=== PATIENT | male | born 1985 | race Hispanic/Latino ===

== ENCOUNTER 2022-08-04 10:56 | Emergency (ER) | payer OTHER ==
[~2022-08-04] VITALS: Ht 172.7 cm; Wt 148.8 kg
[2022-08-04 11:05] VITALS: BP 121/74
[2022-08-04] MEDS ORDERED: IBUPROFEN 800 MG TAB PO ONE (12:00)
[2022-08-04] MEDS ORDERED: OSELTAMIVIR PHOSPHATE 75 MG CAP PO SCH (12:00)
[2022-08-04] MEDS ORDERED: ONDANSETRON ODT 4MG TAB SL ONE (12:00)
[2022-08-04] MEDS ORDERED: OSEL75 PO (12:22)
[2022-08-04] MEDS ORDERED: IBUP-2077 PO (12:22)
== END 2022-08-04 12:45 | disposition home or self-care (01) ==
LOC: EDH 10:56
DX: J10.1 Influenza due to other identified influenza virus with other respiratory manifestations (principal); Z20.822 Contact with and (suspected) exposure to COVID-19; Z79.1 Long term (current) use of non-steroidal anti-inflammatories (NSAID)
CPT/HCPCS: 99284; 87635; 87804 ×2; 87880; 93005; C9803

== ENCOUNTER 2022-08-08 14:15 | Emergency (ER) | payer OTHER ==
[~2022-08-08] VITALS: Ht 172.7 cm; Wt 148.8 kg
[~2022-08-08 14:15] MED LIST: IBUP-2077 PO; OSEL75 PO
[2022-08-08 14:16] VITALS: BP 135/81
[2022-08-08 14:56] LABS: APPEARANCE,URINE CLEAR (CLEAR); BILIRUBIN,URINE NEGATIVE (NEGATIVE); COLOR,URINE LIGHT-YELLOW (YELLOW); GLUCOSE, URINE (UA) NEGATIVE (NEGATIVE); KETONES,URINE NEGATIVE (NEGATIVE); LEUKOCYTE ESTERASE ,URINE NEGATIVE Leu/uL (NEGATIVE); NITRATE,URINE NEGATIVE (NEGATIVE); OCCULT BLOOD,URINE NEGATIVE (NEGATIVE); PH,URINE 5.5 (5.0-8.0); PROTEIN,URINE NEGATIVE (NEGATIVE); UROBILINOGEN,URINE 0.2 mg/dL (0.2-1.0)
[2022-08-08 15:04] LABS: BACTERIA,URINE RARE /HPF (None Seen); MUCUS,URINE FEW LPF (None Seen); RBC,URINE 0-1 /HPF (0-1); SQUAMOUS EPITHELIAL CELL,UR RARE /HPF (0-2); WBC,URINE 0-1 /HPF (0-1)
[2022-08-08 15:13] LABS: BASOPHILS % (AUTO) 0.8 % (0.0-5.0); EOSINOPHILS % (AUTO) 3.3 % (0.0-8.0); HEMATOCRIT 46.2 % (42-54); MEAN CORPUSCULAR HEMOGLOBIN 26.7 pg (27.0-33.0); MEAN CORPUSCULAR HGB CONC 33.1 g/dL (32.0-36.0); MEAN CORPUSCULAR VOLUME 80.5 fL (79-99); MONOCYTES % (AUTO) 5.3 % (3.0-13.0); NEUTROPHILS % (AUTO) 71.3 % (40.0-77.0); PLATELET COUNT (AUTO) 409 K/uL (130-400); RED BLOOD CELL COUNT(AUTO) 5.74 MIL/uL (4.50-6.20); RED CELL DISTRIBUTION WIDTH 14.6 % (11.0-15.5); WHITE BLOOD COUNT (AUTO) 11.6 K/uL (4.8-10.8)
[2022-08-08] MEDS ORDERED: MAG/ALUM/SIMETH 30 ML UDCUP PO ONE (16:00)
[2022-08-08] MEDS ORDERED: ONDANSETRON 4MG TABLET PO ONE (16:00)
[2022-08-08] MEDS ORDERED: DICYCLOMINE HCL 10 MG/5 ML ML PO ONE (16:00)
[2022-08-08] MEDS ORDERED: LIDOCAINE HCL 2% VISCOUS 15 ML UDCUP PO ONE (16:00)
[2022-08-08] MEDS ORDERED: FAMOTIDINE 20MG TAB PO ONE (16:00)
[2022-08-08 16:01] LABS: CREATININE 1.1 mg/dL (0.5-1.5)
[2022-08-08] MEDS ORDERED: ONDANSETRON ODT 4MG TAB ONE (16:03)
[2022-08-08 16:05] LABS: ALBUMIN 3.9 g/dL (3.5-5.0); TOTAL PROTEIN, SERUM 8.7 g/dL (6.0-8.3)
[2022-08-08] MEDS ORDERED: FAMO-136 PO (16:11)
[2022-08-09] MEDS ORDERED: HYDR-3421 PO (17:55)
== END 2022-08-08 16:31 | disposition home or self-care (01) ==
LOC: EDH 14:15
DX: K21.9 Gastro-esophageal reflux disease without esophagitis (principal); E66.01 Morbid (severe) obesity due to excess calories; Z79.1 Long term (current) use of non-steroidal anti-inflammatories (NSAID); Z90.49 Acquired absence of other specified parts of digestive tract; Z68.42 Body mass index [BMI] 45.0-49.9, adult
CPT/HCPCS: 36415; 80053; 81001; 83690; 85025

== ENCOUNTER 2022-12-05 14:47 | Emergency (ER) | payer OTHER ==
[~2022-12-05] VITALS: Ht 172.7 cm; Wt 152.9 kg
[~2022-12-05 14:47] MED LIST changes: +FAMO-136 PO; +HYDR-3421 PO
[2022-12-05 15:33] VITALS: BP 148/92
[2022-12-05] MEDS ORDERED: ONDANSETRON 4MG INJ IVP ONE (16:30)
[2022-12-05] MEDS ORDERED: KETOROLAC 15MG/ML VIAL (15MG/ML) IV ONE (16:30)
[2022-12-05] MEDS ORDERED: 0.9%NACL 1000ML 1,000 ML IV ONE (16:30)
[2022-12-05] MEDS ORDERED: DiphenhydrAMINE HCL 50 MG/ML VIAL IV ONE (16:30)
[2022-12-05 16:37] LABS: BASOPHILS % (AUTO) 0.6 % (0.0-5.0); EOSINOPHILS % (AUTO) 1.1 % (0.0-8.0); HEMATOCRIT 43.5 % (42-54); LYMPHOCYTES % (AUTO) 10.7 % (21.0-51.0); MEAN CORPUSCULAR HEMOGLOBIN 26.4 pg (27.0-33.0); MEAN CORPUSCULAR HGB CONC 32.9 g/dL (32.0-36.0); MEAN CORPUSCULAR VOLUME 80.4 fL (79-99); MONOCYTES % (AUTO) 5.7 % (3.0-13.0); NEUTROPHILS % (AUTO) 81.2 % (40.0-77.0); PLATELET COUNT (AUTO) 363 K/uL (130-400); RED BLOOD CELL COUNT(AUTO) 5.41 MIL/uL (4.50-6.20); RED CELL DISTRIBUTION WIDTH 14.6 % (11.0-15.5)
[2022-12-05 16:47] LABS: POTASSIUM 4.1 mmol/L (3.5-5.1)
[2022-12-05 16:52] LABS: ALBUMIN 3.8 g/dL (3.5-5.0); TOTAL PROTEIN, SERUM 7.9 g/dL (6.0-8.3)
== END 2022-12-05 17:51 | disposition home or self-care (01) ==
LOC: EDH 14:47
DX: G43.909 Migraine, unspecified, not intractable, without status migrainosus (principal); I10 Essential (primary) hypertension; F41.9 Anxiety disorder, unspecified; E66.09 Other obesity due to excess calories; Z68.43 Body mass index [BMI] 50.0-59.9, adult
CPT/HCPCS: 99284; 96374; 96375; 96361; 80053; 85025; 36415; J1200; J7030; J2405; J1885